=== PATIENT | female | born 1985 | race Two or more races ===

== ENCOUNTER 2020-04-18 22:14 | Emergency (ER) | payer SELFPAY ==
[~2020-04-18] VITALS: Ht 167.6 cm; Wt 81.6 kg
--- NOTE | 2020-04-18 22:21 | NUR ---
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 PLACED IN BED 12 ON [employer] AND PULSE OX. LINE ESTABLISHED LAC, BLOOD WORK COLLECTED, SENT TO LAB.
[2020-04-18] MEDS ORDERED: ONDANSETRON HCL/PF 4 MG/2 ML VIAL ONE (22:28)
[2020-04-18] MEDS ORDERED: ONDANSETRON HCL/PF 4 MG/2 ML VIAL IVP ONE (22:30)
[2020-04-18] MEDS ORDERED: IV NS 0.9% 1,000 ML BAG IV ONE (22:30)
[2020-04-18] MEDS ORDERED: ONDA4TAB11 PO (22:31)
[2020-04-18 22:47] LABS: CALCIUM, SERUM 8.9 mg/dL (8.5-10.1); CREATININE 0.7 mg/dL (0.6-1.3); POTASSIUM 3.9 mmol/L (3.5-5.1)
[2020-04-18 22:54] LABS: BASOPHILS % (AUTO) 0.6 % (0.0-2.0); EOSINOPHILS % (AUTO) 1.9 % (0.0-6.0); HEMATOCRIT 40 % (33-45); HEMOGLOBIN 13.3 g/dL (11.5-14.8); LYMPHOCYTES # (AUTO) 2.4 /CMM (0.8-4.8); LYMPHOCYTES % (AUTO) 38.5 % (20.0-44.0); MEAN CORPUSCULAR HGB CONC 34 g/dl (31.0-36.0); MEAN CORPUSCULAR VOLUME 98 fL (82-100); MONOCYTES # (AUTO) 0.4 /CMM (0.1-1.30); MONOCYTES % (AUTO) 5.7 % (2.0-12.0); NEUTROPHILS # (AUTO) 3.3 /CMM (1.8-8.9); NEUTROPHILS % (AUTO) 53.3 % (43.0-81.0); PLATELET COUNT (AUTO) 258 /CMM (150-450); RED BLOOD CELL COUNT(AUTO) 4.07 MIL/uL (4.0-5.2); WHITE BLOOD COUNT (AUTO) 6.2 K/uL (4.3-11.0)
[2020-04-18 22:55] LABS: ALBUMIN 3.7 g/dL (3.4-5.0); BILIRUBIN,DIRECT 0.1 mg/dL (0.0-0.2); BILIRUBIN,TOTAL 0.1 mg/dL (0.2-1.0); TOTAL PROTEIN, SERUM 7.6 g/dL (6.4-8.2)
--- NOTE | 2020-04-18 23:14 | NUR ---
THE BOYFRIEND GAVE CONTACT INFO. NAME IS EVA, [id number].
--- NOTE | 2020-04-19 00:03 | NUR ---
PT PULLED OUT IV. Catheter intact and site benign. Pressure and 4x4 applied to site. No bleeding noted.
--- NOTE | 2020-04-19 00:18 | NUR ---
URINE COLLECTED, SENT TO LAB.
--- NOTE | 2020-04-19 02:16 | NUR ---
PT AAOX4, AMBULATORY WITH STEADY GAIT. PER DR. SIMON MEDICALLY CLEARED FOR DISCHARGE. PT INSTRUCTED NOT TO DRIVE, PT VERBALIZED UNDERSTANDING AND WAS PICKED UP BY BOYFRIEND. Patient discharged to home in stable condition. Written and verbal after care instructions given. Patient verbalizes understanding of instruction.
[2020-04-19 02:17] VITALS: BP 128/79
== END 2020-04-19 02:17 | disposition home or self-care (01) ==
LOC: ER 22:17
DX: F10.121 Alcohol abuse with intoxication delirium (principal); Y90.8 Blood alcohol level of 240 mg/100 ml or more
CPT/HCPCS: 36415; 80048; 80076; 80307; 80320; 84702; 85025; 96361; 96374; 99283; J2405; J7030; G0480